=== PATIENT | female | born 1990 | race African-American/Black ===

== ENCOUNTER 2017-04-24 22:13 | Emergency (ER) | payer SELFPAY ==
[~2017-04-24] VITALS: Ht 170.2 cm; Wt 72.6 kg
[2017-04-24 22:21] VITALS: BP_SYST 119
--- NOTE | 2017-04-24 23:30 | NUR ---
Patient AOx4, ambulatory, presents to ER with complaint of left gluteal abscess. Patient states she has had the abscess x1 week and just been soaking it with epsom salt and taking Ibuprofen for pain. Patient states "It just won't pop, and it hurts alot". Patient states no episodes of fever. No other symptoms or complaints at this time.
--- NOTE | 2017-04-24 23:30 | NUR ---
Patient to ER bed 3 to gown for evaluation. Side rails up.
[2017-04-25] MEDS ORDERED: LIDOCAINE 2%, 20 ML MDV ONE (01:05)
--- NOTE | 2017-04-25 01:20 | NUR ---
ER MD Ching at bedside for medical evaluation.
[2017-04-25] MEDS ORDERED: HYDROmorphone 1 MG INJ. 1 MG/ML AMPUL IM ONE (01:30)
[2017-04-25] MEDS ORDERED: LIDOCAINE 1% 10 MG/ML, 20 ML MDV IJ ONE (01:30)
[2017-04-25] MEDS ORDERED: ONDANSETRON HCL 4 MG/2 ML VIAL IM ONE (01:30)
[2017-04-25] MEDS ORDERED: BACITRACIN 1 GM OINT TP ONE (01:30)
[2017-04-25] MEDS ORDERED: HYDROmorphone 2 MG/ML VIAL ONE (01:39)
--- NOTE | 2017-04-25 01:52 | NUR ---
Scanner did not recognize barcode on Dilaudid vial. Medication administration added manually on intervention.
--- NOTE | 2017-04-25 01:58 | NUR ---
MD hernandez with patient leaving facility 6 min post dilaudid administration. Patient has friend to drive her home. Friend is at bedside.
[2017-04-25 01:59] VITALS: BP_SYST 118
--- NOTE | 2017-04-25 01:59 | NUR ---
Patient given written and verbal discharge instructions and verbalizes understanding. ER MD discussed with patient the results and treatment provided. Patient in stable condition. ID arm band removed. IV catheter removed intact and dressing applied, no active bleeding. Rx of Tylenol with [place] and Keflex given. Patient educated on pain management and to follow up with PMD. Pain Scale 2/10, tolerable to pt. Opportunity for questions provided and answered.
[2017-04-25] MEDS ORDERED: LIDOCAINE 2%, 20 ML MDV IJ ONE (02:15)
[2017-04-25] MEDS ORDERED: SULFAMETHOXAZOLE/TRIMETHOPR DS 1 TABLET ONE (16:24)
== END 2017-04-25 01:59 | disposition home or self-care (01) ==
LOC: SED 22:13
DX: L05.01 Pilonidal cyst with abscess (principal)
CPT/HCPCS: 10080; 96372; 99284; J1170; J2001; J2405

== ENCOUNTER 2017-04-25 14:57 | Emergency (ER) | payer SELFPAY ==
[~2017-04-25] VITALS: Ht 170.2 cm; Wt 72.6 kg
--- NOTE | 2017-04-25 15:00 | NUR ---
Pt to bed 6.
[2017-04-25 15:02] VITALS: BP_SYST 122
--- NOTE | 2017-04-25 15:17 | NUR ---
BUSHRA Whitehead at bedside for evaluation
[2017-04-25] MEDS ORDERED: HYDROmorphone 1 MG INJ. 1 MG/ML AMPUL IM ONE (15:30)
[2017-04-25] MEDS ORDERED: DIPHENHYDRAMINE INJ 50 MG/ML VIAL IM ONE (15:30)
[2017-04-25] MEDS ORDERED: LIDOCAINE/EPI 2% 1:100000 20 ML VIAL INJ ONE (15:30)
--- NOTE | 2017-04-25 15:40 | NUR ---
Janice ADVANCED DEVELOPER at bedside for re-packing of coccyx wound s/p I&D yesterday
--- NOTE | 2017-04-25 15:40 | NUR ---
Medicated for pain per LITIGATION ATTORNEY ASSOCIATE orders.
[2017-04-25] MEDS ORDERED: fentaNYL CITRATE/PF 100 MCG/2 ML AMP IM ONE (15:45)
--- NOTE | 2017-04-25 16:00 | NUR ---
I&D Procedure done by BUSHRA piedra using sterile technique. Lidocaine 2% used. Wound packed with 1/2" idoform . Optifoam to wound. Mild serous amt of bleeding noted. Wound care discussed w/ patient. Pt tolerated procedure well.
[2017-04-25] MEDS ORDERED: SULFAMETHOXAZOLE/TRIMETHOPR DS 1 TABLET PO ONE (16:15)
[2017-04-25 16:26] VITALS: BP_SYST 126
--- NOTE | 2017-04-25 16:26 | NUR ---
Patient given written and verbal discharge instructions and verbalizes understanding. ER MD discussed with patient the results and treatment provided. Patient in stable condition. ID arm band removed. Rx of motrin, bactrim, docusate sodium given. Patient educated on pain management and to follow up with PMD. Pain Scale 0/10. Opportunity for questions provided and answered.
== END 2017-04-25 16:26 | disposition home or self-care (01) ==
LOC: SED 14:57
DX: L02.31 Cutaneous abscess of buttock (principal); R03.0 Elevated blood-pressure reading, without diagnosis of hypertension
CPT/HCPCS: 10060; 81025; 96372; 99284; J1200; J3010

== ENCOUNTER 2017-04-27 11:13 | Emergency (ER) | payer SELFPAY ==
[~2017-04-27] VITALS: Ht 170.2 cm; Wt 72.6 kg
[2017-04-27 11:23] VITALS: BP_SYST 136
[2017-04-27 12:22] VITALS: BP_SYST 130
== END 2017-04-27 12:22 | disposition home or self-care (01) ==
LOC: SED 11:13
DX: Z48.01 Encounter for change or removal of surgical wound dressing (principal); R03.0 Elevated blood-pressure reading, without diagnosis of hypertension
CPT/HCPCS: 99282